=== PATIENT | male | born 1960 | race Caucasian/White ===

== ENCOUNTER 2022-11-30 09:56 | Outpatient (REF) | payer BC, SELFPAY ==
--- NOTE | ~2022-11-30 | XR_ITS ---
EXAMINATION: XR PELVIS CLINICAL INFORMATION: Pain COMPARISON: None available. TECHNIQUE: AP view of the pelvis. FINDINGS: There is a left hip replacement in satisfactory position. No fracture or dislocation or x-ray evidence of loosening. Arthritis at the right hip joint. Bones of the pelvis are normal. Evidence of previous disc surgery to the lower lumbar spine. XR/XR pelvis 1-2V IMPRESSION: Satisfactory appearance of left hip replacement. Satisfactory appearance of left hip replacement.
== END 2022-11-30 09:57 | disposition home or self-care (01) ==
LOC: HO.HOSX 09:56
PROVIDERS: PCP Nurse Practitioner Family; Visit Provider Orthopaedic Surgery
DX: M16.11 Unilateral primary osteoarthritis, right hip (principal)
CPT/HCPCS: 72170

== ENCOUNTER → 2023-02-12 09:49 | Outpatient (BNVA) | payer BC, SELFPAY | PROVIDERS: Visit Provider Orthopaedic Surgery ==

== ENCOUNTER 2023-03-07 12:28 | Outpatient (AMB) | payer BC, SELFPAY ==
--- NOTE | 2023-03-07 12:30 | MHC.OFFVIS ---
Intake Vital Signs 03/07/23 12:39 Height 5 ft 11 in Weight 180 lb BMI 25.1 Intake Visit Reasons: Preop RT DASH 03/12/23 NE Intake Note: Chavo a 62 year old male who presents today for a preoperative right DASH on 03/12/23 NE. Pain management agreement reviewed and signed. Allergies atenolol Allergy (Severe, Verified 03/07/23 12:39) muscle & joint pain Hkrmkbq-DGT-JcU Reductase Inhibitor Adverse Reaction (Intermediate, Verified 03/07/23 12:39) muscle & joint pain Medication List - Last Reconciled 03/07/23 by Bib Vaz PA-C hydrochlorothiazide 25 mg PO QAM tisxmjfnfxhn-wshknqtv-xuklba 1 tab PO DAILY red yeast rice 600 mg PO BID HPI HPI Comments History of Present Illness Details Mr Sue presents to the office today for preop visit. He is scheduled for right total hip arthroplasty with Dr. Hernandez. He continues to have ongoing pain and difficulty with ambulation in the right hip, which is affecting his quality of life; therefore, he has elected to move forward with surgery. [facility] Medical History Arthritis Elevated cholesterol HTN (hypertension) Lyme disease Post-operative nausea and vomiting Sciatic leg pain Viral meningitis Surgical History H/O colonoscopy History of ankle surgery History of left hip replacement (~06/11/16) History of spinal fusion (~2014) Hx of right inguinal hernia repair Social History Are you a primary care support representative to a significant other at home: No Do you presently have visiting nurse or other home services: No Patient Tobacco Use Status: Never used Tobacco Current occupational status: retired Review of Systems Const All systems reviewed & are unremarkable except as noted in HPI and below Physical Exam Vital Signs: BMI result Body Mass Index 25.1 Const General: cooperative and no acute distress Orientation/consciousness: patient oriented x3 HEENT Head: Yes normal to inspection, Yes normocephalic and Yes atraumatic Eyes General: appearance normal, both eyes and all related structures EOM: EOMs intact bilaterally Neck Neck: Yes normal visual inspection and Yes no lymphadenopathy Resp Effort & Inspection: normal respiratory effort and able to speak in complete sentences Cardio Jugular venous distension: no JVD Rate: regular rate Peripheral pulses: Peripheral pulses 2+ throughout GI Inspection: Yes normal to inspection Palpation (GI): Soft to palpation Skin General skin exam: no rashes or lesions noted Rashes: no rashes Neuro General: patient oriented x3 Extrem Other: Right Hip: + impingement + [place] Psych Appearance: grossly normal Mental Status: mental status grossly normal Affect: normal affect Attitude: cooperative Results Reviewed Results Reviewed: XR pelvis 1-2V 11/10/22 IMPRESSION: Satisfactory appearance of left hip replacement. Satisfactory appearance of left hip replacement. Assessment & Plan Assessment & Plan (1) Osteoarthritis of right hip: Code(s): M16.11 - Unilateral primary osteoarthritis, right hip Plan: I discussed in detail the procedure and what to expect pre and post operatively. We discussed the risks, benefits and alternatives to the surgery as well as the rehabilitation course. The risks; which include, but are not limited to infection, bleeding, nerve injury, ongoing pain, swelling, and stiffness, perioperative risk of injury to bones and soft tissues, and blood clots. I?ve answered all questions and with their understanding they have consented to move forward with Right total hip arthroplasty with Dr. Hernandez Patient Instructions: Scribed for Bib Vaz PA-C, by Cal Phan medical technologist chemistry, on 03/07/2023 at 12:30 PM JANIS. Bib Fernando PA-C, have personally reviewed and agree with the information entered by the scribe. Coding Level of Care Code Est Pt Level 3 (42032) Diagnoses Osteoarthritis of right hip M16.11
[2023-03-07 12:39] VITALS: BMI 25.1
--- NOTE | 2023-03-07 13:06 | MHC.OFFVIS ---
Intake Vital Signs 03/07/23 12:39 Height 5 ft 11 in Weight 180 lb BMI 25.1 Intake Visit Reasons: Preop RT DASH 03/12/23 NE Allergies atenolol Allergy (Severe, Verified 03/07/23 12:39) muscle & joint pain Nbpnflg-TGR-CzU Reductase Inhibitor Adverse Reaction (Intermediate, Verified 03/07/23 12:39) muscle & joint pain Medication List - Last Reconciled 03/07/23 by Bib Vaz PA-C hydrochlorothiazide 25 mg PO QAM hdwpntetfrfc-hkwhdcox-nikhsa 1 tab PO DAILY red yeast rice 600 mg PO BID PFSH Medical History Arthritis Elevated cholesterol HTN (hypertension) Lyme disease Post-operative nausea and vomiting Sciatic leg pain Viral meningitis Surgical History H/O colonoscopy History of ankle surgery History of left hip replacement (~06/11/16) History of spinal fusion (~2014) Hx of right inguinal hernia repair Social History Are you a primary restorative care technician to a significant other at home: No Do you presently have visiting nurse or other home services: No Patient Tobacco Use Status: Never used Tobacco Current occupational status: retired Physical Exam Vital Signs: BMI result Body Mass Index 25.1 Assessment & Plan Assessment & Plan (1) Osteoarthritis of right hip: Code(s): M16.11 - Unilateral primary osteoarthritis, right hip Coding Diagnoses Osteoarthritis of right hip M16.11
== END 2023-03-07 13:10 | disposition home or self-care (01) ==
PROVIDERS: Visit Provider Physician Assistant
DX: M16.11 Unilateral primary osteoarthritis, right hip (principal)
CPT/HCPCS: 99024

== ENCOUNTER → 2023-03-07 12:28 | Outpatient (BNVA) | payer BC, SELFPAY | PROVIDERS: Visit Provider Physician Assistant ==

== ENCOUNTER 2023-03-12 06:03 | Inpatient (IN) | payer BC, SELFPAY ==
[2023-03-05 12:05] VITALS: BP 153/90; PULSE 69; RESP 20; O2SAT 100; BMI 24.4
[2023-03-05 14:40] LABS: MRSA Nasal PCR NEGATIVE (Negative); SA Nasal PCR POSITIVE (Negative)
--- NOTE | 2023-03-11 09:23 | HO.ANESPROP2 ---
Documented by User: Amanda Garcia NP 03/11/23 09:27 HPI - Anesthesia Eval Consult details Narrative: 62yo M for Right Hip Total Replacement Medically optimized PONV PMFSH Active Problems Active Problems: All Active Problems (Updated 03/05/23 @ 12:04 by Aggie Irvin RN) Osteoarthritis of right hip (Acute) Past Medical History Medical History Arthritis Elevated cholesterol HTN (hypertension) Lyme disease Post-operative nausea and vomiting Sciatic leg pain Viral meningitis Surgical History Surgical History H/O colonoscopy History of ankle surgery History of left hip replacement (~06/11/16) History of spinal fusion (~2014) Hx of right inguinal hernia repair Social History Social History Are you a primary career and guidance counselor to a significant other at home: No Do you presently have visiting nurse or other home services: No Patient Tobacco Use Status: Never used Tobacco Use of substances other than those prescribed or required for medical reasons: No Have you been hit, kicked, punched, or otherwise hurt by someone within the past year? If so, by whom?: No Are you DNR?: No Advance Directives: No (states would be his son, not sure if has official form) Advance Directives Information Provided: Yes (brochure given) Advance Directives on File: No Recently lost weight without trying: No Eating poorly because of decreased appetite: No Nutrition Risks: No Nutritional Risk Poor oral hygiene: No (crown-lower right-fell out) Current occupational status: retired Meds Allergies Allergy/AdvReac Type Severity Reaction Status Date / Time atenolol Allergy Severe muscle & Verified 03/12/23 06:18 joint pain Kqasdtr-PWP-BaN Reductase AdvReac Intermediate muscle & Verified 03/12/23 06:18 Inhibitor joint pain Home Medications Medication Instructions Recorded Confirmed Last Taken Type hydrochlorothiazide 12.5 mg capsule 25 mg PO QAM 02/12/23 03/07/23 03/11/23 History tclkfqoybxvv-yznqwhyv-bfbmrd tablet 1 tab PO DAILY 03/05/23 03/05/23 03/11/23 History red yeast rice 600 mg tablet 600 mg PO BID 03/05/23 03/05/23 03/11/23 History Exam Exam Date and Time: March 11, 2023922 Height,Weight and Vital Signs: Height 5 ft 11 in Weight 79.379 kg Last Vital Signs Pulse 69 03/05/23 12:05 Resp 20 03/05/23 12:05 BP 153/90 H 03/05/23 12:05 Pulse Ox 100 03/05/23 12:05 O2 Del Method Room Air 03/05/23 12:05 Pertinent Lab Results Pertinent Lab Results: Laboratory Tests 03/05/23 03/05/23 12:20 13:00 Nasal Screen MRSA (PCR) NEGATIVE Nasal S. aureus Screen POSITIVE A Nasal MRSA/S.aureus Interp SEE NOTE Blood Type O Positive Antibody Screen NEGATIVE CBC and BMP 02/2023 from outside facility WNL Narrative Narrative: EKG 02/2023 from outside facility No ischemic changes and no changes from previous Assessment and Plan Assessment Anesthesia Assessment: Chart Reviewed Documented by User: Austin Magana MD 03/12/23 08:22 [facility] Past Medical History Medical History Arthritis Elevated cholesterol HTN (hypertension) Lyme disease Post-operative nausea and vomiting Sciatic leg pain Viral meningitis Family History Family history of problems with anesthesia: No Surgical History Surgical History H/O colonoscopy History of ankle surgery History of left hip replacement (~06/11/16) History of spinal fusion (~2014) Hx of right inguinal hernia repair History of Problems with Anesthesia: No Social History Social History Are you a primary career and guidance counselor to a significant other at home: No Do you presently have visiting nurse or other home services: No Patient Tobacco Use Status: Never used Tobacco Use of substances other than those prescribed or required for medical reasons: No Have you been hit, kicked, punched, or otherwise hurt by someone within the past year? If so, by whom?: No Are you DNR?: No Advance Directives: No (states would be his son, not sure if has official form) Advance Directives Information Provided: Yes (brochure given) Advance Directives on File: No Recently lost weight without trying: No Eating poorly because of decreased appetite: No Nutrition Risks: No Nutritional Risk Poor oral hygiene: No (crown-lower right-fell out) Current occupational status: retired Meds Allergies Allergy/AdvReac Type Severity Reaction Status Date / Time atenolol Allergy Severe muscle & Verified 03/12/23 06:18 joint pain Zchacvu-MDY-ThT Reductase AdvReac Intermediate muscle & Verified 03/12/23 06:18 Inhibitor joint pain Home Medications Medication Instructions Recorded Confirmed Last Taken Type hydrochlorothiazide 12.5 mg capsule 25 mg PO QAM 02/12/23 03/07/23 03/11/23 History hvftlxlzfmwu-sxfoxijm-nyloac tablet 1 tab PO DAILY 03/05/23 03/05/23 03/11/23 History red yeast rice 600 mg tablet 600 mg PO BID 03/05/23 03/05/23 03/11/23 History Exam Airway Mallampati Class: II TM Dist: >3cm Neck ROM: Full Loose/Missing/Broken Teeth: Yes Assessment and Plan Assessment Anesthesia Assessment: Anesthesia Plan Discussed and Chart Reviewed Final Anesthetic Review Family History of Problems with Anesthesia: No History of Problems with Anesthesia: No NPO: Yes ASA Class: II Final Preanesthetic Review: No Changes in Pt Med Stat, Meds/Allgs Chart Reviewed, Consent Obtained/Reviewed and Anes Risks/Benef Reviewed Patient Risk: Low Procedure Risk: Intermediate Anesthetic Plan Anesthetic Plan: GA Disposition: Standard PACU
[2023-03-12] VITALS (20 sets, daily range): BP systolic 122–178; BP diastolic 69–104; PULSE 60–85; RESP 10–18; TEMP 36.2–37; O2SAT 98–100
--- NOTE | ~2023-03-12 | XR_ITS ---
EXAMINATION: XR PELVIS CLINICAL INFORMATION: Status post total right hip replacement COMPARISON: 11/30/2022. TECHNIQUE: AP view of the pelvis. FINDINGS: Since the prior evaluation, there is a new right hip prosthesis in position. No distinct acetabular or pubic disruption. There are small lucencies associated with the adjacent soft tissues likely related to postoperative changes. The previously noted left hip prosthesis is in stable alignment. XR/XR pelvis 1-2V IMPRESSION: New right hip prosthesis in position without any appreciable complication.
[2023-03-12] MEDS: Lactated Ringers 1,000 ML 100 ML IVCONT ×3 (06:25→19:36)
[2023-03-12] MEDS: Scopolamine 1.5 MG PATCH.TD.3 TRANSDERMA (06:26)
[2023-03-12] MEDS: oxyCODONE HCl ER 10 MG TAB.ER.12H PO ×2 (06:51→19:35)
--- NOTE | 2023-03-12 07:34 | MHC.SHP ---
Pre-Procedural Eval Section A Date of Service: 03/12/23 The patient is an INPATIENT: No Changes since office visit: No Cold of Flu in the past 2 weeks, No New Medical Problems, No Changes in Medication and No Patient answered all questions The History & Physical has been completed within 30 days and I have reviewed it.: Yes Section B Chief Complaint: RT DASH Allergies: Allergies Allergy/AdvReac Type Severity Reaction Status Date / Time atenolol Allergy Severe muscle & Verified 03/12/23 06:18 joint pain Qkaqzyz-FIO-XuE Reductase AdvReac Intermediate muscle & Verified 03/12/23 06:18 Inhibitor joint pain Plan I have reviewed the history and physical and performed a pertinent physical examination on my patient. No changes have occurred unless specified. Time Spent With Patient Time: Total time managing care of this patient today ____ minutes.
[2023-03-12] MEDS: ceFAZolin Sodium/Dextrose,Iso 2 GM/50 ML PIGGYBACK IV ×2 (08:00→12:33)
[2023-03-12] MEDS: Acetaminophen 1,000 MG/100 ML PIGGYBACK 400 MG IV (09:15)
--- NOTE | 2023-03-12 09:51 | P.BOP_ITS ---
Brief Operative Note Date of Service: 03/12/23 Pre-op diagnosis: Right hip OA Post-op diagnosis: same Procedure: Right DASH Implants: Josué Trident2 54-lipped liner [place] Accolade2 #7 127deg with +0/36 ceramic femoral head Surgeon: Gilberto Hernandez MD Anesthesia: GETA and local Was an Lithographic Retoucher Apprentice used for this Procedure?: Yes Lithographic Retoucher Apprentice: Bib Vaz Estimated blood loss (mL): 250 IV fluids (mL): 1,000 Pathology: other Condition: stable Disposition: PACU
[2023-03-12] MEDS: HYDROmorphone HCl 0.5 MG/0.5 ML SYRINGE IVPUSH ×3 (10:05→10:52)
[2023-03-12] MEDS: oxyCODONE HCl Immed Release 5 MG TABLET PO ×2 (10:25→14:05)
[2023-03-12] MEDS: fentaNYL citrate/PF 100 MCG/2 ML VIAL 25 MCG IVPUSH ×2 (11:10→11:15)
--- NOTE | 2023-03-12 12:45 | PHA.MEDREC ---
Pharmacy Consult ? Medication Reconciliation Pharmacy has completed the medication reconciliation.
[2023-03-12] MEDS: Acetaminophen 325 MG TABLET 650 MG PO (14:06)
--- NOTE | 2023-03-12 15:54 | PM.IMHP ---
History of Present Illness Date of Service: 03/12/23 Chief Complaint: med consult s/p right hip 62 yo male with HLD doesn't tolerate statin, HTN, h/o OA of right hip that was not amenable to conservative management and so underwent elective Right HIP arthroplast, doing rather well post op without any acute complaint, pain is well controled. Review of Systems Review of Systems: Gen: no fever Resp: no sob, no cough CV: no chest, no REYNOLDS, no leg edema GI: No n/v, no abd pain Neuro: No confusion pain in th hip frm surgery Yes all other systems are reviewed and are negative [facility] Medical History (Updated 03/12/23 @ 16:00 by Robert Jacobsen MD) Arthritis Elevated cholesterol HTN (hypertension) Lyme disease Post-operative nausea and vomiting Sciatic leg pain Viral meningitis Surgical History H/O colonoscopy History of ankle surgery History of left hip replacement (~06/11/16) History of spinal fusion (~2014) Hx of right inguinal hernia repair Social History Are you a primary childcare center administrator to a significant other at home: No Do you presently have visiting nurse or other home services: No Patient Tobacco Use Status: Never used Tobacco Use of substances other than those prescribed or required for medical reasons: No Have you been hit, kicked, punched, or otherwise hurt by someone within the past year? If so, by whom?: No Are you DNR?: No Advance Directives: No (states would be his son, not sure if has official form) Advance Directives Information Provided: Yes (brochure given) Advance Directives on File: No Recently lost weight without trying: No Eating poorly because of decreased appetite: No Nutrition Risks: No Nutritional Risk Poor oral hygiene: No (crown-lower right-fell out) Current occupational status: retired Meds Allergies Allergy/AdvReac Type Severity Reaction Status Date / Time atenolol Allergy Severe muscle & Verified 03/12/23 06:18 joint pain Xynvuxr-HCA-DcF Reductase AdvReac Intermediate muscle & Verified 03/12/23 06:18 Inhibitor joint pain Active Medications: Current Medications Acetaminophen (Acetaminophen 325 Mg Tablet) 650 mg PO Q6H PRN PRN Reason: Pain, Mild (Pain Scale 1-3) Last Admin: 03/12/23 14:06 Dose: 650 mg Aspirin (Aspirin 325 Mg Tablet) 325 mg PO BID [facility] Celecoxib (Celecoxib 200 Mg Capsule) 200 mg PO BID [facility] Docusate Sodium (Docusate Sodium 100 Mg Capsule) 100 mg PO BID [facility] Fentanyl (Fentanyl Citrate/Pf 100 Mcg/2 Ml Vial) 50 mcg IVPUSH Q5M PRN; Protocol PRN Reason: Pain, Severe (Pain Scale 7-10) Fentanyl (Fentanyl Citrate/Pf 100 Mcg/2 Ml Vial) 25 mcg IVPUSH Q5M PRN; Protocol PRN Reason: Pain, Moderate(Pain Scale 4-6) Last Admin: 03/12/23 11:15 Dose: 25 mcg Hydromorphone HCl (Hydromorphone Hcl 0.5 Mg/0.5 Ml Syringe) 0.25 mg IVPUSH Q4H PRN; Protocol PRN Reason: Pain, Severe (Pain Scale 7-10) Lactated Ringer's (Lr) 1,000 mls @ 100 mls/hr IVCONT .Q10H [facility] Stop: 03/13/23 09:45 Last Admin: 03/12/23 12:32 Dose: 100 mls/hr Ondansetron HCl (Ondansetron Hcl 4 Mg/2 Ml Vial) 4 mg IVPUSH Q8H PRN PRN Reason: Nausea and Vomiting Oxycodone HCl (Oxycodone Hcl Immed Release 5 Mg Tablet) 5 mg PO Q4H PRN PRN Reason: Pain, Moderate(Pain Scale 4-6) Last Admin: 03/12/23 14:05 Dose: 5 mg Oxycodone HCl (Oxycodone Hcl Er 10 Mg Tab.Er.12h) 10 mg PO BID [facility] Sodium Chloride (0.9 % Sodium Chloride Flush 3 Ml Syringe) 3 ml IVFLUSH QSHIFT [facility] Home Medications Medication Instructions Recorded Confirmed Last Taken Type hydrochlorothiazide 12.5 mg capsule 25 mg PO DAILY 02/12/23 03/12/23 03/11/23 History dccwcnyerqpd-iufaukfi-laitgt tablet 1 tab PO DAILY 03/05/23 03/05/23 03/11/23 History red yeast rice 600 mg tablet 600 mg PO BID 03/05/23 03/05/23 03/11/23 History Physical Exam Vital Signs and Narrative: Vital Signs: Last Vital Signs Temp 97.4 F 03/12/23 12:21 Pulse 77 03/12/23 12:45 Resp 16 03/12/23 12:21 BP 146/81 H 03/12/23 12:45 Pulse Ox 99 03/12/23 12:45 O2 Del Method Nasal Cannula 03/12/23 11:20 O2 Flow Rate 2 03/12/23 12:21 Oxygen Flow Rate 0 03/12/23 10:47 BMI result Body Mass Index 24.4 Assessment and Plan (1) Osteoarthritis of right hip: Status: Acute Plan 62 yo male with HLD doesn't tolerate statin, HTN, h/o OA of right hip that was not amenable to conservative management and so underwent elective Right HIP arthroplasty doing rather well post op without any acute complaint, pain is well controled. s/p right hip arthroplasty-management per surgery HTN--resume HCTZ tomorrow Time Spent With Patient Time: Total time managing care of this patient today ____ minutes. Quality Stroke Does the patient have a stroke diagnosis?: No VTE Prior VTE?: No VTE Risk Level:: Medical - moderate - high VTE Device Contraindication: N/A - Device Ordered VTE Drug Contraindication: N/A - Med Ordered
--- NOTE | 2023-03-12 19:11 | W.MHC.F2F ---
Service Date Service Date: 03/12/23 Encounter Date of encounter: 03/13/23 Reasons for Services Signs and symptoms assessed: s/p RTHA. Pt. is considered homebound due to recent surgery. Unable to drive, poor balance, poor gait mechanics. Reason for physical therapy: home safety and mobility, therapeutic exercises, restore joint function, gait/transfer training, assess need for DME and ADL training Reason for occupational therapy: home safety and mobility, therapeutic exercises, restore joint function, gait/transfer training, assess need for DME and ADL training Homebound: Leaving the home is medically contraindicated at this time without the asist of a device and/or another person due th the listed conditions above and below. Reason homebound: unsteady gait / fall risk, leg weakness, pain with ambulation, pain with transfers, poor balance / fall risk and unable to drive Certification: Based on the above findings, I certify that this patient is confined to the home and needs intermittent [facility] care, physical therapy and/or speech therapy, or continues to need occupational therapy. The patient is under my care, and I have initiated the establishment of the plan of care. The patient will be followed by a physician who will periodically review the plan of care. Time Spent With Patient Time: Total time managing care of this patient today ____ minutes.
--- NOTE | 2023-03-12 19:12 | P.DS_ITS ---
DS: Providers Provider Date of Service: 03/13/23 Date of admission: 03/12/23 06:03 Primary care physician: Summer Garcia DNP, PRINCIPAL ADMINISTRATIVE CLERK, N Consults: 03/12/23 12:04 Consult to Hospitalist Routine Comment: medical managment Consulting Provider: Hospitalist Reason For Exam: medical managment DS: Diagnosis Discharge Diagnosis (1) Osteoarthritis of right hip: Status: Acute DS: Summary Hospital Course Hospital Course: The patient underwent a successful right total hip arthroplasty, they were transferred to PACU and then to the floor to recover. During their stay, their vitals were stable, afebrile at ( ). Labs were unremarkable, H/H ( ). POD 1 they were started on Aspirin 325mg po bid for DVT ppx, they also received Physical Therapy services twice a day. Prior to discharge, their dressing was changed, incision clean dry and intact, new Aquacel dressing applied and the plan was to be discharged home with VNA services. Time Spent with Patient Time attestation: Total time managing care of this patient today ____ minutes. Discharge coordination time: Less than 30 minutes Quality: Safe Use of Opioids Does Pt have an Active Cancer Diagnosis on the Problem List?: No Quality: Stroke Does the patient have a stroke diagnosis?: No Physical Exam Vital Signs: Vital Signs: Last Vital Signs Temp 97.2 F 03/12/23 16:00 Pulse 69 03/12/23 16:00 Resp 18 03/12/23 16:00 BP 144/78 H 03/12/23 16:00 Pulse Ox 100 03/12/23 16:00 O2 Del Method Room Air 03/12/23 16:00 O2 Flow Rate 2 03/12/23 12:21 Oxygen Flow Rate 0 03/12/23 10:47 BMI result Body Mass Index 24.4 Extrem: Other: Right hip Aquacel is c/d/i. Able to dorsi/plantar flex. NVI. DS: Data Data Completed and Pending Pending studies at discharge: Pending at discharge 03/12/23 08:25 Surgical [PTH] Routine Discharge Plan Discharge Anticipated Discharge Date/Time: 03/14/23 15:10 Patient Disposition: Home Health Service Discharge Diagnosis: s/p RTHA Referrals: Jossie Patel PA-C [Physician Photographic Double] - 08/24/23 2:00 pm Discharge Medications: New oxycodone 5 mg Tablet 5 mg PO Q4H PRN (Reason: Pain, Moderate(Pain Scale 4-6)) 7 Days Qty: 42 0RF Rx Instructions: Partial Fill upon patient request. aspirin 325 mg Tablet 325 mg PO BID 42 Days Qty: 84 0RF docusate sodium 100 mg Capsule 100 mg PO BID 30 Days Qty: 60 0RF acetaminophen 325 mg Tablet 650 mg PO Q6H PRN (Reason: Pain, Mild (Pain Scale 1-3)) 30 Days Qty: 240 0RF celecoxib 200 mg Capsule 200 mg PO BID 30 Days Qty: 60 0RF Continued red yeast rice 600 mg Tablet 600 mg PO BID Rx Instructions: give with meal/snack Centrum Silver Tablet 1 tab PO DAILY hydrochlorothiazide 12.5 mg capsule 25 mg PO DAILY Discharge Orders: Discharge Order (Routine); Ordered 03/13/23 Ordered By: Jossie Patel Diet: Advance to usual diet Activity on Discharge: Use cane or walker Stand Alone Forms: Patient Portal Discharge page Care Plan Goals: Restore fxn to right hip Health Concerns: None Plan of Treatment: Physical Therapy for total hip arthroplasty: posterior precautions, gait training, ROM, strength Limit stair climbing No showering, no tub bath-keep dressing clean, dry and intact No driving x6 weeks Continue Lovenox tabs once a day x 4 weeks Follow up with [facility] in 2 weeks Assessment: Yeni anderson d/c
[2023-03-12] MEDS: Docusate Sodium 100 MG CAPSULE PO (19:35)
[2023-03-12] MEDS: Celecoxib 200 MG CAPSULE PO (19:36)
[2023-03-13] MEDS: oxyCODONE HCl Immed Release 5 MG TABLET PO ×3 (03:42→14:17)
[2023-03-13 03:54] VITALS: BP 129/77; PULSE 64; RESP 18; TEMP 36.6; O2SAT 98
[2023-03-13] MEDS: Lactated Ringers 1,000 ML 100 ML IVCONT (05:06)
[2023-03-13 06:37] LABS: MANUAL DIFF FLAG NO
[2023-03-13 06:41] LABS: Basophils Percent Auto 0.1 % (0-2); Eosinophils Percent Auto 0.3 % (0-4); Hematocrit 38.4 % (42.0-52.0); Imm Gran Abs Auto 0.03 X10*3/uL (0.00-0.03); Imm Gran Pct Auto 0.3 % (0.0-0.4); Lymphocytes Absolute Auto 1.3 X10*3/uL (1.2-4.9); Lymphocytes Percent Auto 12.8 % (20-40); Mean Corpuscular HGB Conc 33.9 g/dl (31.0-36.0); Mean Corpuscular Hemoglobin 31.6 pg (27.0-33.0); Mean Corpuscular Volume 93.4 fL (80.0-98.0); Mean Platelet Volume 8.5 fL (9.4-12.4); Monocytes Absolute Auto 0.8 X10*3/uL (0.1-1.2); Neutrophils Absolute Auto 7.7 x10*3/uL (2.0-8.3); Neutrophils Percent Auto 78.5 % (45-73); Platelet Count 276 X10*3/uL (160-400); Red Blood Count 4.11 X10*6/uL (4.60-5.80); Red Cell Distribution Width 12.8 % (11.0-16.0); White Blood Count 9.8 X10*3/uL (4.8-10.8)
[2023-03-13 06:51] LABS: Anion Gap 11 (12-20); Blood Urea Nitrogen 12 mg/dL (9-16); Calcium 8.9 mg/dL (8.4-10.2); Carbon Dioxide 30 mmol/L (22-29); Chloride 103 mmol/L (96-108); Creatinine Clr Calc Pharmacy 83.6; Estimated Glomerular Filt Rate > 60; Glucose Fasting 117 mg/dL (60-99); Potassium 3.1 mmol/L (3.3-5.1); Sodium 141 mmol/L (135-145)
--- NOTE | 2023-03-13 07:38 | P.OP_ITS ---
Operative Note Operative Note Date of Service: 03/12/23 Narrative: Date of Service: 03/12/23 Pre-op diagnosis: Right hip OA Post-op diagnosis: same Procedure: Right DASH Implants: [employer] Trident2 54-lipped liner Josué Accolade2 #7 127deg with +0/36 ceramic femoral head Surgeon: Gilberto Hernandez MD Anesthesia: GETA and local Was an Family Practice Md used for this Procedure?: Yes Family Practice Md: Bib Vaz Estimated blood loss (mL): 250 IV fluids (mL): 1,000 Pathology: other Condition: stable Disposition: PACU Procedure in detail: Patient was brought into the operating room and placed in the right lateral decubitus position. All bony prominences were well padded and the limb was prepped and draped in standard sterile fashion. A time-out was called to identify proper site procedure proper surgeon IV antibiotics and 1 g of transaxemic acid were administered. I began by making a curvilinear incision over the posterolateral aspect of the greater trochanter. Dissection was taken down to the tensor fascia which was incised in line with the incision and a Charnley retractor was placed. Cautery was used to maintain hemostasis. The hip was internally rotated and the external rotators were identified. The vessels were cauterized and a full-thickness capsular/external rotator layer was developed starting just proximal to the piriformis. This layer was tagged and a dull Hohmann retractor was placed underneath the neck in the hip was dislocated. A neck cut was made 1 cm proximal to the lesser trochanter and the head and neck were removed and measured 51mm on the back table. The superior surface was eburnated. I then removed the labrum and cauterized the fovea. I started with a 46 reamer and medialized to the inner table. I sequentially reamed up to a size 54 and impacted a 54mm cup at 45 degrees of inclination and 25 degrees of version. I then placed a 20 deg posterior lipped liner and turned my attention to the femur. I identified the piriformis insertion and used this as a starting point for my samson cutter. The medius tendon was protected with a Hibs retractor. A Charnley awl was inserted in the canal and a curved curette used to remove the lateral bone. I irrigated copiously. I then sequentially broached in the patient's natural version to a size 5 and placed my trial implants. I used a #7 127deg with +0/36 ceramic femoral head based on my pre-operative template. Using a trail head I took the hip through range of motion. I was satisfied with the st ability. I removed all instrumentation and copiously irrigated. I placed my final femoral implant and again took the hip through range of motion and was satisfied with the stability and length. The final +0 implant was impacted in place and the hip reduced. I then irrigated for 3 minutes with iodine and placed 1 g of local transaxemic acid. I performed a capsular closure with 2.0 fiberwire, Domitila's fascia with 0 Vicryl, subcuticular with 2-0 Vicryl and the skin with elyse. Patient was placed into a sterile dressing. Radiographs were obtained prior to extubation and I was satisfied with the results. Patient was then extubated brought to the recovery room in stable condition. There were no known complications.
[2023-03-13 07:42] VITALS: BP 145/78; PULSE 73; RESP 17; TEMP 36.8; O2SAT 97
[2023-03-13] MEDS: 0.9 % Sodium Chloride Flush 3 ML SYRINGE IVFLUSH (07:51)
[2023-03-13] MEDS: Aspirin 325 MG TABLET PO (07:51)
[2023-03-13] MEDS: Celecoxib 200 MG CAPSULE PO (07:52)
[2023-03-13] MEDS: Docusate Sodium 100 MG CAPSULE PO (07:52)
[2023-03-13 08:15] VITALS: BP 145/78; PULSE 73; O2SAT 97
[2023-03-13] MEDS: oxyCODONE HCl ER 10 MG TAB.ER.12H PO (08:27)
--- NOTE | 2023-03-13 08:47 | MHC.CM.PN ---
PATIENT IS DC. REFERRAL TO [facility] FOR HOME P.T. NEEDS. CM FOLLOWING
--- NOTE | 2023-03-13 08:54 | MHC.CM.PN ---
PATIENT LIVES ALONE. HE HAS A CANE, WALKER, AND CRUTCHES HCP IS HIS SON, MARVIN AND HE BELIEVES THAT MARVIN HAS THE ORIGINAL. PLAN IS HOME TODAY WITH [facility]. GIRLFRIEND, BEHZAD, WILL PROVIDE TRANSPORT HOME. SHE MAY NOT BE ABLE TO COME UNTIL 1700.
--- NOTE | 2023-03-13 10:19 | P.PNIM_ITS ---
Subjective Subjective Date of Service: 03/13/23 Interval History: seen, doing well no issues Physical Exam Vital Signs: Vital Signs: Last Vital Signs Temp 98.2 F 03/13/23 07:42 Pulse 73 03/13/23 08:15 Resp 17 03/13/23 07:42 BP 145/78 H 03/13/23 08:15 Pulse Ox 97 03/13/23 08:15 O2 Del Method Room Air 03/13/23 07:42 O2 Flow Rate 2 03/12/23 12:21 Oxygen Flow Rate 0 03/12/23 10:47 BMI result Body Mass Index 24.4 Const: Other: General: AO X 3, no acute distress Resp: CTA bilateral CVS: S1,S2,RRR GI: +BS, NT, no distention Skin: No rash Neuro: motor grossly intact Psych: appropriate affect Extrem: Other: Right hip Aquacel is c/d/i. Able to dorsi/plantar flex. NVI. Objective Data Active Medications Acetaminophen (Acetaminophen 325 Mg Tablet) 650 mg PO Q6H PRN PRN Reason: Pain, Mild (Pain Scale 1-3) Last Admin: 03/12/23 14:06 Dose: 650 mg Documented By: JARRET Aspirin (Aspirin 325 Mg Tablet) 325 mg PO BID [facility] Last Admin: 03/13/23 07:51 Dose: 325 mg Documented By: KAYKAY Celecoxib (Celecoxib 200 Mg Capsule) 200 mg PO BID [facility] Last Admin: 03/13/23 07:52 Dose: 200 mg Documented By: KAYKAY Docusate Sodium (Docusate Sodium 100 Mg Capsule) 100 mg PO BID [facility] Last Admin: 03/13/23 07:52 Dose: 100 mg Documented By: KAYKAY Fentanyl (Fentanyl Citrate/Pf 100 Mcg/2 Ml Vial) 50 mcg IVPUSH Q5M PRN; Protocol PRN Reason: Pain, Severe (Pain Scale 7-10) Fentanyl (Fentanyl Citrate/Pf 100 Mcg/2 Ml Vial) 25 mcg IVPUSH Q5M PRN; Protocol PRN Reason: Pain, Moderate(Pain Scale 4-6) Last Admin: 03/12/23 11:15 Dose: 25 mcg Documented By: RUTH Hydromorphone HCl (Hydromorphone Hcl 0.5 Mg/0.5 Ml Syringe) 0.25 mg IVPUSH Q4H PRN; Protocol PRN Reason: Pain, Severe (Pain Scale 7-10) Ondansetron HCl (Ondansetron Hcl 4 Mg/2 Ml Vial) 4 mg IVPUSH Q8H PRN PRN Reason: Nausea and Vomiting Oxycodone HCl (Oxycodone Hcl Immed Release 5 Mg Tablet) 5 mg PO Q4H PRN PRN Reason: Pain, Moderate(Pain Scale 4-6) Last Admin: 03/13/23 07:52 Dose: 5 mg Documented By: KAYKAY Oxycodone HCl (Oxycodone Hcl Er 10 Mg Tab.Er.12h) 10 mg PO BID [facility] Last Admin: 03/13/23 08:27 Dose: 10 mg Documented By: KAYKAY Sodium Chloride (0.9 % Sodium Chloride Flush 3 Ml Syringe) 3 ml IVFLUSH QSHIFT [facility] Last Admin: 03/13/23 07:51 Dose: 3 ml Documented By: KAYKAY Labs 03/13/23 06:26 03/13/23 06:26 Labs: Laboratory Results - last 24 hr 03/13/23 03/13/23 06:26 06:26 MCV 93.4 MCH 31.6 MCHC 33.9 RDW 12.8 Plt Count 276 MPV 8.5 L Immature Gran % (Auto) 0.3 Neut % (Auto) 78.5 H Lymph % (Auto) 12.8 L [place] % (Auto) 8.0 Eos % (Auto) 0.3 Baso % (Auto) 0.1 Lymph # (Auto) 1.3 [place] # (Auto) 0.8 Eos # (Auto) 0.0 Baso # (Auto) 0.0 Abs Immat Gran (auto) 0.03 Absolute Neuts (auto) 7.7 Absolute Nucleated RBC 0.000 Nucleated RBC % (auto) 0.0 Anion Gap 11 L Estim Creat Clear Calc 83.6 Estimated GFR > 60 Fasting Glucose 117 H Calcium 8.9 Assessment and Plan (1) HTN (hypertension): Status: Acute (2) Osteoarthritis of right hip: Status: Acute Plan 62 yo male with HLD doesn't tolerate statin, HTN, h/o OA of right hip that was not amenable to conservative management and so underwent elective Right HIP arthroplasty doing rather well post op without any acute complaint, pain is well controled. s/p right hip arthroplasty-management per surgery HTN--resume HCTZ today singing off Time Spent With Patient Time: Total time managing care of this patient today ____ minutes. Quality Stroke Does the patient have a stroke diagnosis?: No VTE Prior VTE?: No VTE Risk Level:: Medical - moderate - high VTE Device Contraindication: N/A - Device Ordered VTE Drug Contraindication: N/A - Med Ordered
[2023-03-13 10:47] VITALS: O2SAT 97
[2023-03-13 11:29] VITALS: O2SAT 97
--- NOTE | 2023-03-13 13:49 | HO.POSTANES ---
Post Anesthesia Evaluation Post Anesthesia Evaluation Date of Service: 03/13/23 Vital Signs: Vital Signs Temp Pulse Resp BP Pulse Ox O2 Del Method 03/13/23 11:29 97 03/13/23 10:47 97 Room Air 03/13/23 08:15 73 145/78 H 97 03/13/23 07:42 98.2 F 73 17 145/78 H 97 Room Air 03/13/23 03:54 97.8 F 64 18 129/77 98 Room Air Anesthesia: General Mental Status: Awake Pain Control: Satisfactory Nausea/Vomiting: None Hydration: Adequate Anesthesia-Related Issues: No Anes. Related Issues
== END 2023-03-13 15:16 | disposition home health service (06) | DRG 301 ==
LOC: HO.SSSA 06:11 → HO.S3 10:02
PROVIDERS: Physician Assistant; Admitting Provider Orthopaedic Surgery; PCP Nurse Practitioner Family; Visit Provider Orthopaedic Surgery
PROC: 0SR903A Replacement of Right Hip Joint with Ceramic Synthetic Substitute, Uncemented, Open Approach (ICD-10-PCS; CPT 27130; principal; 2023-03-12 07:30)
DX: M16.11 Unilateral primary osteoarthritis, right hip (principal); I10 Essential (primary) hypertension; E78.00 Pure hypercholesterolemia, unspecified; Z79.899 Other long term (current) drug therapy
CPT/HCPCS: 27130; 36415; 72170; 80048; 85025; 86850; 86900; 86901; 87640; 87641; 88304; 88311; 97110; 97116; 97162; 97166; C1776; J0131; J0690; J1100; J1170; J2250; J2405; J2550; J2795; J3010

== ENCOUNTER → 2023-03-12 06:03 | Outpatient (BNV) | payer BC, SELFPAY | PROVIDERS: Admitting Provider Orthopaedic Surgery; PCP Nurse Practitioner Family; Visit Provider Orthopaedic Surgery | DX: M16.11 Unilateral primary osteoarthritis, right hip (principal); Z96.641 Presence of right artificial hip joint | CPT/HCPCS: 27130; G0180 ==

== ENCOUNTER → 2023-03-12 06:03 | Outpatient (BNV) | payer BC, SELFPAY | PROVIDERS: Admitting Provider Orthopaedic Surgery; PCP Nurse Practitioner Family; Visit Provider Internal Medicine | DX: I10 Essential (primary) hypertension (principal); M16.11 Unilateral primary osteoarthritis, right hip | CPT/HCPCS: 99232 ==

== ENCOUNTER 2023-03-28 13:47 | Outpatient (AMB) | payer BC, SELFPAY ==
--- NOTE | 2023-03-28 14:12 | MHC.OFFVIS ---
Intake Intake Visit Reasons: PO-RT DASH 03/12/23 NE Intake Note: Chavo is a 62 year old male who presents today for a post operative right DASH on 03/12/23 NE. Patient reports no pain or discomfort. Allergies atenolol Allergy (Severe, Verified 03/28/23 14:14) muscle & joint pain Xkeydpl-LZX-HtZ Reductase Inhibitor Adverse Reaction (Intermediate, Verified 03/28/23 14:14) muscle & joint pain HPI PO-RT DASH 03/12/23 NE HPI Details 62-year-old male who presents in the office today 2 weeks status post right total hip arthroplasty, which was performed on 03/12/[address] Hernandez. The patient reports no pain or discomfort while in the office today. [facility] Medical History Arthritis Elevated cholesterol HTN (hypertension) Lyme disease Post-operative nausea and vomiting Sciatic leg pain Viral meningitis Surgical History H/O colonoscopy History of ankle surgery History of left hip replacement (~06/11/16) History of spinal fusion (~2014) Hx of right inguinal hernia repair Social History Are you a primary child care centre director to a significant other at home: No Do you presently have visiting nurse or other home services: No Patient Tobacco Use Status: Never used Tobacco service: No Current occupational status: retired Review of Systems Const All systems reviewed & are unremarkable except as noted in HPI and below Physical Exam Const General: cooperative, healthy appearing and no acute distress Resp Effort & Inspection: normal respiratory effort and able to speak in complete sentences Cardio Rate: regular rate Peripheral pulses: Peripheral pulses 2+ throughout GI Palpation (GI): Soft to palpation Skin Lesions: no lesions Rashes: no rashes Extrem Other: Right hip: Incision site is clean, dry, and intact. No surrounding erythema or drainage. No signs of infection. Maud intact. Full ROM in all planes. Assessment & Plan Assessment & Plan (1) S/P total right hip arthroplasty: Comment: 03/12/2023 NE Code(s): Z96.641 - Presence of right artificial hip joint Plan Mr. Sue is a 62-year-old male who presents in the office today 2 weeks status post right total hip arthroplasty, which was performed on 03/12/[address] Hernandez. The patient reports no pain or discomfort while in the office today. Maud were removed and steri-stripes were applied. He does not wish to attend formal physical therapy. He also states he has discontinued at home physical therapy. He reports he ambulated 7,000 steps yesterday. Follow up will be in [address] Hernandez, or sooner if needed. Orders: Orders PT Evaluation and Treatment Today M16.11 - Unilateral primary osteoarthritis, right hip Patient Instructions: Scribed for Jossie Patel PA-C by Ashleigh Smith emergency medical service manager, on 03/28/2023 at 1:48 pm, EST. Coding Level of Care Code Global (59782) Diagnoses S/P total right hip arthroplasty Z96.641
== END 2023-03-28 14:51 | disposition home or self-care (01) ==
PROVIDERS: Visit Provider Physician Assistant
DX: Z96.641 Presence of right artificial hip joint (principal)
CPT/HCPCS: 99024

== ENCOUNTER → 2023-03-28 13:47 | Outpatient (BNVA) | payer BC, SELFPAY | PROVIDERS: Visit Provider Physician Assistant | DX: M16.11 Unilateral primary osteoarthritis, right hip (principal) ==

== ENCOUNTER 2023-04-25 10:19 | Outpatient (AMB) | payer BC, SELFPAY ==
--- NOTE | 2023-04-25 10:42 | A.OFFVIS_ITS ---
Intake Intake Visit Reasons: PO-RT DASH 03/12/23 NE Intake Note: Chavo a 62 year old male who presents today for a post operative right TKA, DOS 03/12/23 NE. Patient reports he is doing well, states some soreness/discomfort about a week ago while fertilizing his lawn, setting him back a couple of weeks. Allergies atenolol Allergy (Severe, Verified 04/25/23 10:49) muscle & joint pain Mhoefwe-EGH-MwB Reductase Inhibitor Adverse Reaction (Intermediate, Verified 04/25/23 10:49) muscle & joint pain HPI PO-RT DASH 03/12/23 NE HPI Details 62-year-old male who returns to the [facility] today for post-op right DASH, 03/12/[address] Hernandez. He states he experienced some soreness and discomfort about a week ago while fertilizing his lawn. He is doing well otherwise and has no concerns today. [facility] Medical History Arthritis Elevated cholesterol HTN (hypertension) Lyme disease Post-operative nausea and vomiting Sciatic leg pain Viral meningitis Surgical History Hx of right inguinal hernia repair H/O colonoscopy History of ankle surgery History of spinal fusion (~2014) History of left hip replacement (~06/11/16) Social History Are you a primary healthcare representative to a significant other at home: No Do you presently have visiting nurse or other home services: No Patient Tobacco Use Status: Never used Tobacco service: No Current occupational status: retired Review of Systems Const All systems reviewed & are unremarkable except as noted in HPI and below Physical Exam Extrem Other: Incision well healed. No pain with ROM of the hip. No pain with hip flexion. NVI. Assessment & Plan Assessment & Plan (1) S/P total right hip arthroplasty: Comment: 03/12/2023 NE Code(s): Z96.641 - Presence of right artificial hip joint Plan He will continue to work with his home exercises program. Posterior precautions were reinforced. He will follow-up in [address] Hernandez and new x-rays, sooner if needed. Patient Instructions: Scribed for Bib Vaz PA-C, by Cal Phan, program medical director, on 04/25/2023 at 10:45 AM EST. IBib PA-C, have personally reviewed and agree with the information entered by the scribe. Coding Level of Care Code Global (56324) Diagnoses S/P total right hip arthroplasty Z96.641
== END 2023-04-25 11:35 | disposition home or self-care (01) ==
PROVIDERS: PCP Nurse Practitioner Family; Visit Provider Physician Assistant
DX: Z96.641 Presence of right artificial hip joint (principal)
CPT/HCPCS: 99024

== ENCOUNTER → 2023-04-25 10:19 | Outpatient (BNVA) | payer BC, SELFPAY | PROVIDERS: PCP Nurse Practitioner Family; Visit Provider Physician Assistant ==

== ENCOUNTER 2023-06-06 09:42 | Outpatient (REF) | payer BC, SELFPAY ==
--- NOTE | ~2023-06-06 | XR_ITS ---
EXAMINATION: XR HIP, RIGHT CLINICAL INFORMATION: Pain in unspecified hip. COMPARISON: 03/12/2023, 11/30/2022. TECHNIQUE: AP view of the pelvis as well as AP and crosstable lateral views of the right hip. Visualization limited on crosstable lateral view due to technical factors and body habitus. FINDINGS: Redemonstration of right total hip prosthesis. Hardware appears intact. Increased ossific/calcific densities in the soft tissues lateral to the right acetabulum. Left total hip prosthesis redemonstrated, incompletely imaged. Redemonstration of hardware in the lower lumbar spine. XR/XR hip RT w PEL1V IMPRESSION: Redemonstration of right total hip prosthesis. Hardware appears intact. Increased ossific/calcific densities in the soft tissues lateral to the right acetabulum.
== END 2023-06-06 09:43 | disposition home or self-care (01) ==
LOC: HO.HOSX 09:42
PROVIDERS: PCP Nurse Practitioner Family; Visit Provider Physician Assistant
DX: Z47.1 Aftercare following joint replacement surgery (principal); Z96.641 Presence of right artificial hip joint
CPT/HCPCS: 73502

== ENCOUNTER 2023-06-06 09:42 | Outpatient (AMB) | payer BC, SELFPAY ==
--- NOTE | 2023-06-06 09:51 | A.OFFVIS_ITS ---
Intake Vital Signs 06/06/23 09:52 Height 5 ft 11 in Weight 184 lb BMI 25.7 Intake Visit Reasons: PO-RT DASH 03/12/23 NE Intake Note: Chavo a 62 year old male presents today for a post operative right DASH, DOS 03/12/23 NE. Patient reports he is doing well, states stiffness in the morning. Allergies atenolol Allergy (Severe, Verified 06/06/23 09:54) muscle & joint pain Rrpykmu-XOK-UtX Reductase Inhibitor Adverse Reaction (Intermediate, Verified 06/06/23 09:54) muscle & joint pain HPI PO-RT DASH 03/12/23 NE HPI Details 62-year-old male who returns to the [facility] today for post-op right DASH, 03/12/[address] Hernandez. He states he has no pain but he does c/o stiffness in the morning. He is doing well overall and has no other concerns today. [facility] Medical History Arthritis Elevated cholesterol HTN (hypertension) Lyme disease Post-operative nausea and vomiting Sciatic leg pain Viral meningitis Surgical History Hx of right inguinal hernia repair H/O colonoscopy History of ankle surgery History of spinal fusion (~2014) History of left hip replacement (~06/11/16) Social History Are you a primary housekeeper child care to a significant other at home: No Do you presently have visiting nurse or other home services: No Patient Tobacco Use Status: Never used Tobacco service: No Current occupational status: retired Review of Systems Const All systems reviewed & are unremarkable except as noted in HPI and below Physical Exam Vital Signs: BMI result Body Mass Index 25.7 Extrem Other: Right hip: Incision well healed. No pain with ROM or hip flexion. NVI. Results Reviewed Results Reviewed: Xrays were obtained in the office today and personally reviewed by me show intact prosthesis without signs of loosening. Assessment & Plan Assessment & Plan (1) S/P total right hip arthroplasty: Comment: 03/12/2023 NE Code(s): Z96.641 - Presence of right artificial hip joint Plan He will continue to increase activity as tolerated. We did discuss antibiotic prophylaxis for dental visits and he will see us back in 1 year for annual total hip follow-up. Orders: Orders XR hip RT w PEL1V Today M25.559 - Pain in unspecified hip Patient Instructions: Scribed for Bib Vaz PA-C, by Cal Phan dental assistant medical assistant, on 06/06/2023 at 9:45 AM EST. I, Bib Vaz PA-C, have personally reviewed and agree with the information entered by the scribe. Coding Level of Care Code Global (71926) Diagnoses S/P total right hip arthroplasty Z96.641
[2023-06-06 09:52] VITALS: BMI 25.7
== END 2023-06-06 10:49 | disposition home or self-care (01) ==
PROVIDERS: PCP Nurse Practitioner Family; Visit Provider Physician Assistant
DX: Z96.641 Presence of right artificial hip joint (principal)
CPT/HCPCS: 99024